=== PATIENT | female | born 1995 | race Caucasian/White ===

== ENCOUNTER → 2018-07-07 09:49 | Outpatient (CLI) | payer OTHER, MEDICAID, SELFPAY ==
--- NOTE | 2018-07-07 09:53 | DI.CT.S_ITS ---
PROCEDURE: CT SINUS SCREEN WO CON INDICATIONS: Chronic Sinusitis TECHNIQUE: Noncontrast 3.0 mm axial images acquired from the frontal sinuses to the mid-sella, with coronal and sagittal reformats. For radiation dose reduction, the following was used: automated exposure control, adjustment of mA and/or kV according to patient size. COMPARISON: None. FINDINGS: Image quality: Excellent. There is a sinuses are normally aerated. No mucosal thickening identified. No air-fluid levels identified. The osteomeatal units are patent bilaterally. No osseous thickening, osseous remodeling are osseous erosive changes. Small right galdino bullosa noted. No paradoxical turbinates. Nasal septum is deviated to the right. Right frontal recess cell noted. Type II cribriform plate noted. Anterior ethmoid artery notches are protected. IMPRESSION: No mucosal thickening or air-fluid levels identified in the paranasal sinuses. Dictated by: Una Tapia MD, PhD on 07/07/2018 at 11:32 Approved by: Una Tapia MD, PhD on 07/07/2018 at 11:41
== END ==
PROVIDERS: Visit Provider Physician Assistant
DX: J32.9 Chronic sinusitis, unspecified (principal); J34.2 Deviated nasal septum; J34.3 Hypertrophy of nasal turbinates
CPT/HCPCS: 70486